=== PATIENT | female | born 1985 | race African-American/Black ===

== ENCOUNTER 2017-04-10 13:28 | Emergency (ER) | payer OTHER ==
[~2017-04-10] VITALS: Ht 157.5 cm; Wt 77.0 kg
[~2017-04-10 13:28] MED LIST: ALBUAER3 INH; ANXIETY MED; AZIT500T2 PO; BENZ100 PO; LISI-519 PO; PRED-503 PO; TRINTAB7 PO; [UNRECOGNIZED DRUG - REMARK]
[2017-04-10 13:30] VITALS: BP 133/87; PULSE 86; RESP 20; TEMP 97.5; O2SAT 98
--- NOTE | 2017-04-10 14:23 | PD ---
HPI Chief Complaint: Related Problem Time Seen by Provider: 13:37 Travel History International Travel<30 days: No Contact w/Intl Traveler<30days: No Traveled to known affect area: No History of Present Illness HPI 31-year-old female presents to the emergency department for evaluation of vaginal spotting and abdominal cramping during . Patient states she is 7 weeks, 3 days . Her sports medicine coordinator is Dr. Salmeron. She has had an ultrasound which confirmed intrauterine . 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 She states the spotting is mild. It started yesterday. She denies any urinary symptoms. No fevers or chills. Patient is unsure what her blood type is, but believes she is O+. Patient denies any abnormal vaginal discharge, no risk of STDs. She states she was recently tested by her sports medicine coordinator and all tests were negative. [facility] Past Medical History Hypertension: Yes Pneumonia: Yes ?: LMP: 02/23/2017 Past Surgical History Section: Yes Gynecologic Surgery: Yes (CERVICAL CIRCLAGE) Social History Alcohol Use: Yes (SOCIALLY) Tobacco Use: No Substance Use: No Allergies-Medications (Allergen,Severity, Reaction): Coded Allergies: No Known Allergies (Unverified , 02/06/17) Reported Meds & Prescriptions Reported Meds & Active Scripts Active Tessalon Perles (Benzonatate) 100 Mg Cap 100 Mg PO TID PRN 10 Days Azithromycin 500 Mg Tab 500 Mg PO DAILY Proair Hfa 8.5 GM Inh (Albuterol Sulfate) 90 Mcg/Act Aer 2 Puff INH Q4-6H PRN 108 mcg/actuation Deltasone (Prednisone) 20 Mg Tab 40 Mg PO DAILY 4 Days start 02/07/2017 Reported Trinessa (Norgestimate-Ethinyl Estradiol) 0.18/0.215/0.25 mg-35 Mcg Tab 1 Tab PO DAILY Review of Systems Except as stated in HPI: all other systems reviewed are Neg Physical Exam Narrative GENERAL: Well-nourished, well-developed female patient, ambulatory. Afebrile. SKIN: Focused skin assessment warm/dry. HEAD: Normocephalic. Atraumatic. EYES: No scleral icterus. No injection or drainage. NECK: Supple, trachea midline. No JVD or lymphadenopathy. CARDIOVASCULAR: Regular rate and rhythm without murmurs, gallops, or rubs. RESPIRATORY: Breath sounds equal bilaterally. No accessory muscle use. Lungs sounds are clear to auscultation. GASTROINTESTINAL: Abdomen soft, non-tender, nondistended. No abdominal tenderness to palpation. MUSCULOSKELETAL: No cyanosis, or edema. BACK: Nontender without obvious deformity. No CVA tenderness. Data Data Last Documented VS Vital Signs Date Time Temp Pulse Resp B/P (MAP) Pulse Ox O2 Delivery O2 Flow Rate FiO2 04/10/17 14:12 16 04/10/17 13:30 97.5 86 133/87 (102) 98 Room Air Orders Orders Beta Hcg (Quant/Titer) (04/10/17 13:51) Complete Blood Count With Diff (04/10/17 13:51) Basic Metabolic Panel (Bmp) (04/10/17 13:51) Type And Screen (04/10/17 13:51) Urinalysis - C+S If Indicated (04/10/17 13:51) Ed Urine Pregnancytest Poc (04/10/17 13:51) Labs Laboratory Tests Test 04/10/17 14:00 04/10/17 14:10 White Blood Count 8.3 TH/MM3 Red Blood Count 4.21 MIL/MM3 Hemoglobin 13.2 GM/DL Hematocrit 38.8 % Mean Corpuscular Volume 92.1 FL Mean Corpuscular Hemoglobin 31.4 PG Mean Corpuscular Hemoglobin Concent 34.1 % Red Cell Distribution Width 13.4 % Platelet Count 172 TH/MM3 Mean Platelet Volume 9.5 FL Neutrophils (%) (Auto) 66.3 % Lymphocytes (%) (Auto) 25.9 % Monocytes (%) (Auto) 6.2 % Eosinophils (%) (Auto) 1.2 % Basophils (%) (Auto) 0.4 % Neutrophils # (Auto) 5.5 TH/MM3 Lymphocytes # (Auto) 2.2 TH/MM3 Monocytes # (Auto) 0.5 TH/MM3 Eosinophils # (Auto) 0.1 TH/MM3 Basophils # (Auto) 0.0 TH/MM3 CBC Comment DIFF FINAL Differential Comment Blood Urea Nitrogen 9 MG/DL Creatinine 0.60 MG/DL Random Glucose 108 MG/DL Calcium Level 8.8 MG/DL Sodium Level 137 MEQ/L Potassium Level 3.9 MEQ/L Chloride Level 106 MEQ/L Carbon Dioxide Level 23.7 MEQ/L Anion Gap 7 MEQ/L Estimat Glomerular Filtration Rate 142 ML/MIN Human Chorionic Gonadotropin, Quant 26482 MIU/ML Urine Color LIGHT-YELLOW Urine Turbidity CLEAR Urine pH 6.0 Urine Specific [place] 1.009 Urine Protein NEG mg/dL Urine Glucose (UA) NEG mg/dL Urine Ketones NEG mg/dL Urine Occult Blood SMALL Urine Nitrite NEG Urine Bilirubin NEG Urine Urobilinogen LESS THAN 2.0 MG/DL Urine Leukocyte Esterase NEG Urine RBC 1 /hpf Urine WBC 1 /hpf Urine Squamous Epithelial Cells 1 /hpf Urine Hyaline Casts 1 /lpf Microscopic Urinalysis Comment CULT NOT INDICATED MDM Medical Decision Making Medical Screen Exam Complete: Yes Emergency Medical Condition: Yes Medical Record Reviewed: Yes Differential Diagnosis Threatened miscarriage versus UTI versus intrauterine Narrative Course 31-year-old female presents to the emergency department for evaluation of vaginal spotting that occurred yesterday. She is 7 weeks, 3 days . She 31 had an ultrasound which confirmed intrauterine . I discussed with my attending physician, Dr. Archer, who recommends lab work and follow up outpatient with her sports medicine coordinator. She verbalizes agreement to this. CBC, BMP, beta hCG, completed Rh, UA, UPT are ordered and pending. CBC is unremarkable. BMP shows no acute abnormality. Beta HCG is 92,930. UA is negative for acute infection. UPT is positive. Blood type is O+. Patient is instructed to follow with her sports medicine coordinator in 48 hours. She is return here for any acute worsening of symptoms. Patient verbalizes agreement and understanding. Diagnosis Primary Impression: Threatened Referrals: Freezing Room Worker call for appointment Patient Instructions: General Instructions, Threatened Miscarriage (ED) Additional Instructions: Follow-up with your sports medicine coordinator in 48 hours for recheck. Your beta hCG is 92, 930. Pelvic rest. Follow up with your sports medicine coordinator. Return to the emergency department for any acute, worsening symptoms. Med/Other Pt SpecificInfo: No Change to Meds Disposition: 01 DISCHARGE HOME Condition: Stable Ashley Tan KAY Apr 10, 2017 14:23
[2017-04-10 14:27] LABS: AUTOMATED NEUTROPHIL # 5.5 TH/MM3 (1.8-7.7); BASOPHIL % 0.4 % (0.0-2.0); EOSINOPHIL # 0.1 TH/MM3 (0-0.4); EOSINOPHIL % 1.2 % (0.0-4.0); HEMATOCRIT 38.8 % (35.0-46.0); HEMO FLAGS DIFF FINAL; LYMPH % 25.9 % (9.0-44.0); LYMPHOCYTE # 2.2 TH/MM3 (1.0-4.8); MEAN CELL VOLUME 92.1 FL (80.0-100.0); MEAN CORPUSCULAR HEMOGLOBIN 31.4 PG (27.0-34.0); MEAN CORPUSCULAR HGB CONC 34.1 % (32.0-36.0); MONO % 6.2 % (0.0-8.0); NEUT % 66.3 % (16.0-70.0); PLATELET COUNT 172 TH/MM3 (150-450); RED BLOOD COUNT 4.21 MIL/MM3 (4.00-5.30); RED CELL DISTRIBUTION WIDTH 13.4 % (11.6-17.2); WHITE BLOOD COUNT 8.3 TH/MM3 (4.0-11.0)
[2017-04-10 14:31] LABS: BLOOD, URINE SMALL (NEG); GLUCOSE,URINE NEG (NEG); HYALINE CAST, URINE 1 /lpf (RARE); KETONE, URINE NEG (NEG); NITRITE,URINE NEG (NEG); SQUAMOUS EPITHELIAL CELL URINE 1 /hpf (0-5); URINE COLOR LIGHT-YELLOW (YELLW/STRAW)
[2017-04-10 14:34] LABS: COMMENT (UR) CULT NOT INDICATED; CULTURE IF INDICATED CULT NOT INDICATED
[2017-04-10 15:13] LABS: BICARBONATE 23.7 MEQ/L (21.0-32.0); POTASSIUM 3.9 MEQ/L (3.5-5.1)
[2017-05-10] MEDS ORDERED: PREN29TA PO (11:47)
== END 2017-04-10 16:10 | disposition home or self-care (01) ==
LOC: NEPD 13:28 → MERGE 13:28 → NEPD 16:10
DX: O20.0 Threatened abortion (principal); Z3A.01 Less than 8 weeks gestation of pregnancy
CPT/HCPCS: 80048; 81001; 84702; 84703; 85025; 86850; 86900; 86901; 99283

== ENCOUNTER → 2017-05-10 | Day surgery (SDC) | payer OTHER ==
[~2017-05-10] VITALS: Ht 157.5 cm; Wt 78.4 kg
[~2017-05-10] MED LIST changes: +CHLORHEXIDINE GLUCONATE 2 % 1 PACK (2 CLOTHS) TOPICAL PRN; +DO NOT ADM ANY ANTICOAGULANT DRUGS PRN; +INSULIN HUMAN REGULAR 1,000 UNITS/10 ML VIAL SQ PRN; +LACTATED RINGER'S 1000 ML IV PRN; +METOPROLOL TARTRATE 25 MG TAB PO PRN; +ONDANSETRON HCL 4 MG/2 ML VIAL ONE; +POVIDONE IODINE 5% (ANTISEPSIS KIT) 4 APPLICATIONS EACH NARE PRN; +PREN29TA PO; +SODIUM CHLORID 0.9% 500 ML IV PRN
[2017-05-10 11:41] LABS: AUTOMATED NEUTROPHIL # 4.6 TH/MM3 (1.8-7.7); BASOPHIL % 0.3 % (0.0-2.0); EOSINOPHIL % 0.4 % (0.0-4.0); HEMATOCRIT 37.5 % (35.0-46.0); HEMO FLAGS DIFF FINAL; LYMPH % 27.8 % (9.0-44.0); MEAN CELL VOLUME 91.6 FL (80.0-100.0); MEAN CORPUSCULAR HEMOGLOBIN 31.1 PG (27.0-34.0); MONO % 6.4 % (0.0-8.0); NEUT % 65.1 % (16.0-70.0); PLATELET COUNT 194 TH/MM3 (150-450); RED BLOOD COUNT 4.09 MIL/MM3 (4.00-5.30); WHITE BLOOD COUNT 7.1 TH/MM3 (4.0-11.0)
--- NOTE | 2017-05-10 15:19 | PD.OP ---
Operative Report Date of Surgery: May 10, 2017 Preoperative Diagnosis: (1) Incompetent cervix Postoperative Diagnosis: (1) Incompetent cervix Procedure: cervical cerclage Anesthesia: spinal LEV Surgeon: Dedrick Salmeron Coal Mill Operator(s): Dedrick Power MD May 10, 2017 15:19
--- NOTE | 2017-05-10 15:21 | HHI.DCPOC ---
Discharge Care Plan Diagnosis: (1) Cervical cerclage suture present Report Symptoms to Your Doctor -Temperature above 100.5 degrees -Redness, of incision or excessive or foul smelling drainage -Unusual pain or calf pain -Increased vaginal bleeding -Painful or difficulty urinating -Feelings of extreme sadness or anxiety after 2 weeks Goals to Promote Your Health * To prevent worsening of your condition and complications * To maintain your health at the optimal level Directions to Meet Your Goals Take your medications as prescribed Follow your dietary instruction Follow activity as directed Ensure plenty of rest for recovery Drink fluids for hydration Keep your appointments as scheduled Take your immunizations and boosters as scheduled If your symptoms worsen call your PCP, if no PCP go to Urgent Care Center or Emergency Room Smoking is Dangerous to Your Health. Avoid second hand smoke Call the 24-hour crisis hotline for domestic abuse at Dedrick Salmeron MD May 10, 2017 15:21
[2017-05-10 18:20] VITALS: BP 134/89; PULSE 83; RESP 16; TEMP 97.6; O2SAT 99
--- NOTE | 2017-05-16 09:14 | MP ---
cc: JESUS SALMERON DATE OF SURGERY 05/10/2017 PROCEDURE Cervical cerclage. PREOPERATIVE DIAGNOSIS Incompetent cervix. POSTOPERATIVE DIAGNOSIS Incompetent cervix. SURGEON Dr. Heather Salmeron ESTIMATED BLOOD LOSS Less than 10 mL COMPLICATIONS None FINDINGS Closed cervix and non-dilated, non-thinned ANESTHESIA Spinal, Dr. Inman COMPLICATIONS None PROCEDURE IN DETAIL After informed consent, the patient taken to the operating room where she was placed under spinal anesthesia, placed in spine position, legs in candy-cane stirrups. Abdomen, perineum, vagina prepped and draped normal sterile fashion. The prep was performed inside the vagina. The cervix was identified and thick. A #1 Prolene was placed in a pursestring fashion 1 cm from the distal portion of the cervix. This was done five times through the cervix and at 1 o'clock portion a knot was tied. The second suture was placed more proximal approximately 2 cm above where the outside of the cervix was in the same pursestring fashion, tying a knot again 1 o'clock. Both sutures had a loop so they could be removed later, good suture was noted. Good hemostasis and noted at the end of the procedure. The patient tolerated the procedure well. She was taken to the recovery room in stable condition. MD VIJAY Hart/ /3:16 PM /9:11 AM
== END | disposition home or self-care (01) ==
LOC: HSDC 10:20
PROVIDERS: ATTEND Obstetrics & Gynecology
DX: O34.31 Maternal care for cervical incompetence, first trimester (principal)
CPT/HCPCS: 00948; 59320; 85025; J2405

== ENCOUNTER → 2017-05-11 | Outpatient (CLI) | payer OTHER ==
[~2017-05-11] MED LIST changes: -ALBUAER3 INH; -ANXIETY MED; -AZIT500T2 PO; -BENZ100 PO; -CHLORHEXIDINE GLUCONATE 2 % 1 PACK (2 CLOTHS) TOPICAL PRN; -DO NOT ADM ANY ANTICOAGULANT DRUGS PRN; -INSULIN HUMAN REGULAR 1,000 UNITS/10 ML VIAL SQ PRN; -LACTATED RINGER'S 1000 ML IV PRN; -LISI-519 PO; -METOPROLOL TARTRATE 25 MG TAB PO PRN; -ONDANSETRON HCL 4 MG/2 ML VIAL ONE; -POVIDONE IODINE 5% (ANTISEPSIS KIT) 4 APPLICATIONS EACH NARE PRN; -PRED-503 PO; -SODIUM CHLORID 0.9% 500 ML IV PRN; -TRINTAB7 PO; -[UNRECOGNIZED DRUG - REMARK]
== END ==
LOC: HPND 08:08
PROVIDERS: ATTEND Obstetrics & Gynecology
DX: O34.31 Maternal care for cervical incompetence, first trimester (principal); O99.211 Obesity complicating pregnancy, first trimester; E66.09 Other obesity due to excess calories
CPT/HCPCS: 36415; 76813

== ENCOUNTER → 2017-06-01 | Outpatient (CLI) | payer OTHER | LOC: HPND 08:14 | PROVIDERS: ATTEND Obstetrics & Gynecology | DX: O34.32 Maternal care for cervical incompetence, second trimester (principal); O34.12 Maternal care for benign tumor of corpus uteri, second trimester | CPT/HCPCS: 76815; 76817 ==

== ENCOUNTER → 2017-06-15 | Outpatient (CLI) | payer OTHER | LOC: HPND 08:07 | PROVIDERS: ATTEND Obstetrics & Gynecology | DX: O09.292 Supervision of pregnancy with other poor reproductive or obstetric history, second trimester (principal); O34.32 Maternal care for cervical incompetence, second trimester | CPT/HCPCS: 76811; 76817 ==

== ENCOUNTER → 2017-07-01 | Outpatient (CLI) | payer OTHER | LOC: HPND 08:03 | PROVIDERS: ATTEND Obstetrics & Gynecology | DX: O09.292 Supervision of pregnancy with other poor reproductive or obstetric history, second trimester (principal); O34.32 Maternal care for cervical incompetence, second trimester | CPT/HCPCS: 76815; 76817 ==

== ENCOUNTER → 2017-07-15 | Outpatient (CLI) | payer OTHER | LOC: HPND 08:02 | PROVIDERS: ATTEND Obstetrics & Gynecology | DX: O34.32 Maternal care for cervical incompetence, second trimester (principal); O09.292 Supervision of pregnancy with other poor reproductive or obstetric history, second trimester; O26.872 Cervical shortening, second trimester; O34.12 Maternal care for benign tumor of corpus uteri, second trimester; O09.892 Supervision of other high risk pregnancies, second trimester; O09.212 Supervision of pregnancy with history of pre-term labor, second trimester; Z3A.21 21 weeks gestation of pregnancy | CPT/HCPCS: 76816; 76817 ==

== ENCOUNTER 2017-07-29 08:01 | Observation (INO) | payer OTHER ==
[2017-07-29] MEDS ORDERED: LACTATED RINGER'S 1000 ML INJ 1,000 ML IV SCH (09:36)
[2017-07-29] MEDS ORDERED: SODIUM CHLORIDE 0.9% FLUSH 10 ML FLUSH IV FLUSH PRN (09:45)
[2017-07-29] MEDS ORDERED: ACETAMINOPHEN 325 MG TAB PO PRN (09:45)
[2017-07-29] MEDS ORDERED: ONDANSETRON ODT 4 MG TAB PO PRN (09:45)
[2017-07-29] MEDS ORDERED: SODIUM CHLORIDE 0.9% FLUSH 10 ML FLUSH IV FLUSH SCH (09:45)
[2017-07-29] MEDS ORDERED: ZOLPIDEM TARTRATE 5 MG TAB PO PRN (09:45)
[2017-07-29] MEDS ORDERED: BETAMETHASONE SOD PHOS/ACETATE SUSP 30 MG/5 ML VIAL IM SCH (11:00)
[2017-07-29] MEDS ORDERED: AZITHROMYCIN PWD FOR SUSP 1 GM PACKET PO ONE (12:00)
[2017-07-29] MEDS ORDERED: AMPICILLIN INJ 2,000 MG in SODIUM CHLORIDE 0.9% INJ 100 ML IV SCH (12:00)
[2017-07-29 12:04] LABS: BILIRUBIN, URINE NEG (NEG); BLOOD, URINE NEG (NEG); GLUCOSE,URINE NEG (NEG); KETONE, URINE NEG (NEG); NITRITE,URINE NEG (NEG); SQUAMOUS EPITHELIAL CELL URINE <1 /hpf (0-5); URINE COLOR LIGHT-YELLOW (YELLW/STRAW); URINE LEUKOCYTE ESTERASE NEG (NEG)
--- NOTE | 2017-07-29 12:41 | HHI.HP ---
HPI Chief Complaint 23 5/7 weeks and failing cerclage Date Seen: Jul 29, 2017 Time Seen: 11:30 Travel History International Travel<30 Days: No Contact w/Intl Traveler<30Days: No Known Affected Area: No History of Present Illness HPI 32 yo at 23 5/7 weeks and has a cerclage in place and remained 4 cm until 22 weeks and then now has bulging membranes and slight hourglass membranes. Amnisure negative. Patient has been on bedrest and progesterone weekly. Needs transfer to level 3 nursery Weeks Gestation: 23 Para: 1 : 5 Last Menstrual Period: Jul 29, 2017 Miscarriage: 3 History Past Medical History Narrative Medical none Obstetric History Obstetric History CS term then developed incompetant cervix and loss at 17 and 18 weeks. then loss at 19 week with cerclage Past Surgical History Narrative Surgical CS and cerclage x2 Family History Family History: Negative Social History Alcohol Use: No Tobacco Use: No Substance Abuse: No Allergies-Medications (Allergen,Severity, Reaction): Coded Allergies: No Known Allergies (Verified Allergy, Unknown, 07/29/17) Home Meds Reported Medications Vit-Iron Carbonyl ( Plus Iron 29-1 mg) 29 Mg Iron-1 Mg Tab, 1 TAB PO DAILY for Nutritional Supplement, #30 TAB 0 Refills 05/10/17 Review of Systems Except as stated in HPI: all other systems reviewed are Neg Physical Exam Narrative GENERAL: Well-nourished, well-developed patient. SKIN: Warm and dry. HEAD: Normocephalic and atraumatic. EYES: No scleral icterus. No injection or drainage. ENT: No nasal drainage noted. Mucous membranes pink. Airway patent. NECK: Supple, trachea midline. No JVD. CARDIOVASCULAR: Regular rate and rhythm without murmurs, gallops, or rubs. RESPIRATORY: Breath sounds equal bilaterally. No accessory muscle use. BREASTS: Bilateral exam showed no masses , no retractions, no nipple discharge. ABDOMEN/GI: Abdomen soft, non-tender, bowel sounds present, no rebound, no guarding Gravid to 24 weeks size Fundal Height: [-] GENITOURINARY: External Genitalia: intact and normal in appearance BUS glands: [-] Cervix: [-] Dilatation: US 2 cm no digital exam Effacement: [-] Station: [-] Presentation: [-] Membranes: [intact Uterine Contractions: no FHT's: Category: 1 Baseline: [-] Reactive: [-] Variability: [-] Decels: [-] EXTREMITIES: No cyanosis or edema. BACK: Nontender without obvious deformity. No CVA tenderness. NEUROLOGICAL: Awake and alert. Motor and sensory grossly within normal limits. Five out of 5 muscle strength in all muscle groups. Normal speech. Caprini VTE Risk Assessment Caprini VTE Risk Assessment: No/Low Risk (score <= 1) Caprini Risk Assessment Model Point Value = 1 Point Value = 2 Point Value = 3 Point Value = 5 Age 41-60 Minor surgery BMI > 25 kg/m2 Swollen legs Varicose veins or History of unexplained or recurrent spontaneous Oral contraceptives or hormone replacement Sepsis (< 1 month) Serious lung disease, including pneumonia (< 1 month) Abnormal pulmonary function Acute myocardial infarction Congestive heart failure (< 1 month) History of inflammatory bowel disease Medical patient at bed rest Age 61-74 Arthroscopic surgery Major open surgery (> 45 min) Laparoscopic surgery (> 45 min) Malignancy Confined to bed (> 72 hours) Immobilizing plaster cast Central venous access Age >= 75 History of VTE Family history of VTE Factor V Leiden Prothrombin [id number] Lupus anticoagulant Anticardiolipin antibodies Elevated serum homocysteine Heparin-induced thrombocytopenia Other congenital or acquired thrombophilia Stroke (< 1 month) Elective arthroplasty Hip, pelvis, or leg fracture Acute spinal cord injury (< 1 month) Prophylaxis Regimen Total Risk Factor Score Risk Level Prophylaxis Regimen 0-1 Low Early ambulation 2 Moderate Order ONE of the following: *Sequential Compression Device (SCD) *Heparin 5000 units SQ BID 3-4 Higher Order ONE of the following medications: *Heparin 5000 units SQ TID *Enoxaparin/Lovenox 40 mg SQ daily (WT < 150 kg, CrCl > 30 mL/min) *Enoxaparin/Lovenox 30 mg SQ daily (WT < 150 kg, CrCl > 10-29 mL/min) *Enoxaparin/Lovenox 30 mg SQ BID (WT < 150 kg, CrCl > 30 mL/min) AND/OR *Sequential Compression Device (SCD) 5 or more Highest Order ONE of the following medications: *Heparin 5000 units SQ TID (Preferred with Epidurals) *Enoxaparin/Lovenox 40 mg SQ daily (WT < 150 kg, CrCl > 30 mL/min) *Enoxaparin/Lovenox 30 mg SQ daily (WT < 150 kg, CrCl > 10-29 mL/min) *Enoxaparin/Lovenox 30 mg SQ BID (WT < 150 kg, CrCl > 30 mL/min) AND *Sequential Compression Device (SCD) Data Data Vital Signs Reviewed: Yes Orders Orders Us Ob Limited W/Transvaginal (07/29/17 ) Place In Observation (07/29/17 ) Diet Regular Basic (07/29/17 Breakfast) Vital Signs (Adult) [id number] AWAKE (07/29/17 09:36) Heart HAN.QSHIFT (07/29/17 09:36) Activity Bed Rest (07/29/17 09:36) Complete Blood Count With Diff (07/29/17 09:36) Urinalysis - C+S If Indicated (07/29/17 09:36) Lactated Ringer's 1000 Ml Inj (Lr 1000 M (07/29/17 09:36) Acetaminophen (Tylenol) (07/29/17 09:45) Sodium Chloride 0.9% Flush (Ns Flush) (07/29/17 09:45) Sodium Chloride 0.9% Flush (Ns Flush) (07/29/17 09:45) Zolpidem (Ambien) (07/29/17 09:45) Ondansetron Odt (Zofran Odt) (07/29/17 09:45) Betamethasone Inj (Celestone Soluspan In (07/29/17 11:00) Ampicillin Inj (Ampicillin Inj) (07/29/17 12:00) Azithromycin Powd Pack (Zithromax Powd P (07/29/17 12:00) Specimen To Be Collected PRN (07/29/17 09:36) Vital Signs (Adult) Q4H (07/29/17 09:42) Activity Bed Rest (07/29/17 09:42) Heart (07/29/17 09:42) Drug Screen, Random Urine (07/29/17 09:42) Specimen To Be Collected PRN (07/29/17 09:42) Labs Laboratory Tests Test 07/29/17 10:43 Urine Color LIGHT-YELLOW Urine Turbidity CLEAR Urine pH 7.0 Urine Specific [place] 1.005 Urine Protein NEG Urine Glucose (UA) NEG Urine Ketones NEG Urine Occult Blood NEG Urine Nitrite NEG Urine Bilirubin NEG Urine Urobilinogen LESS THAN 2.0 Urine Leukocyte Esterase NEG Urine RBC LESS THAN 1 Urine WBC 1 Urine Squamous Epithelial Cells <1 Microscopic Urinalysis Comment CULT NOT INDICATED Urine Opiates Screen NEG Urine Barbiturates Screen NEG Urine Amphetamines Screen NEG Urine Benzodiazepines Screen NEG Urine Cocaine Screen NEG Urine Cannabinoids Screen NEG Assessment/Plan Problem List: (1) 23 weeks gestation of ICD Codes: Z3A.23 - 23 weeks gestation of (2) Incompetent cervix ICD Codes: N88.3 - Incompetent cervix Status: Acute (3) Cervical cerclage suture present ICD Codes: O34.30 - Cervical cerclage suture present Status: Acute Discharge Planning transfer to juan Salmeron,Dedrick Pierson MD Jul 29, 2017 12:41
[2017-07-29] MEDS ORDERED: CALCIUM GLUCONATE 10% 1 GM/10 ML VIAL IV PUSH PRN (12:45)
[2017-07-29] MEDS ORDERED: MAGNESIUM SULFATE 40 GM PREMIX 1,000 ML IV SCH (13:15)
[2017-07-29 13:44] LABS: AUTOMATED NEUTROPHIL # 6.4 TH/MM3 (1.8-7.7); BASOPHIL % 0.5 % (0.0-2.0); EOSINOPHIL % 0.5 % (0.0-4.0); HEMATOCRIT 38.3 % (35.0-46.0); LYMPH % 23.1 % (9.0-44.0); LYMPHOCYTE # 2.1 TH/MM3 (1.0-4.8); MEAN CELL VOLUME 92.3 FL (80.0-100.0); MEAN CORPUSCULAR HEMOGLOBIN 31.5 PG (27.0-34.0); MEAN CORPUSCULAR HGB CONC 34.1 % (32.0-36.0); MEAN PLATELET VOLUME 11.2 FL (7.0-11.0); MONO % 5.6 % (0.0-8.0); MONOCYTE # 0.5 TH/MM3 (0-0.9); NEUT % 70.3 % (16.0-70.0); PLATELET COUNT 159 TH/MM3 (150-450); RED BLOOD COUNT 4.15 MIL/MM3 (4.00-5.30); RED CELL DISTRIBUTION WIDTH 13.2 % (11.6-17.2)
== END 2017-07-29 14:34 | disposition short-term general hospital (02) ==
LOC: HPND 08:01 → H2EB 09:24 → UNDOADMIN 09:24 → INTOOBSV 09:42 → H2EB 09:42 → UNDODISIN 14:34
PROVIDERS: ADMIT Obstetrics & Gynecology; ATTEND Obstetrics & Gynecology
DX: O34.32 Maternal care for cervical incompetence, second trimester (principal); O09.292 Supervision of pregnancy with other poor reproductive or obstetric history, second trimester; Z3A.23 23 weeks gestation of pregnancy; Z79.899 Other long term (current) drug therapy
CPT/HCPCS: 76815; 76817; 80307; 81001; 85025; 96372; 96374; 96375; G0378; J0290; J0702; J3475; J7120